=== PATIENT | female | born 1985 | race Caucasian/White ===

== ENCOUNTER 2017-05-04 19:32 | Emergency (ER) | payer OTHER ==
[~2017-05-04] VITALS: Ht 160 cm; Wt 60.0 kg
[2017-05-04 19:33] VITALS: BP 122/66; PULSE 87; RESP 16; TEMP 98.3; O2SAT 98
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
[2017-05-04] MEDS ORDERED: IBUP-232 PO (21:27)
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
== END 2017-05-04 21:52 | disposition home or self-care (01) ==
LOC: NEPK 19:32
DX: R20.2 Paresthesia of skin (principal); I25.2 Old myocardial infarction; I48.91 Unspecified atrial fibrillation; I47.1 Supraventricular tachycardia; Z86.73 Personal history of transient ischemic attack (TIA), and cerebral infarction without residual deficits; Z88.0 Allergy status to penicillin; V43.63XA Car passenger injured in collision with pick-up truck in traffic accident, initial encounter; Y92.410 Unspecified street and highway as the place of occurrence of the external cause
CPT/HCPCS: 73564; 99283